=== PATIENT | female | born 1950 | race Native Hawaiian/Other Pacific Islander ===

== ENCOUNTER 2018-05-09 12:58 | Emergency (ER) | payer SELFPAY ==
[2018-05-09 13:10] VITALS: BP 155/86; PULSE 81; RESP 14; TEMP 36.8; O2SAT 98; BMI 25.6
--- NOTE | 2018-05-09 13:54 | ED_ITS ---
HPI - URI/Sore Throat General Chief Complaint: Upper Respiratory Symptoms Stated Complaint: Thinks she has the flu Time Seen by Provider: 05/09/18 13:54 Source: patient Mode of arrival: ambulatory Limitations: no limitations History of Present Illness HPI Narrative: otherwise healthy 68-year-old female who works as a [employer] here for evaluation of headache, body aches, and flu-like symptoms for the past 3 days. She has not tried anything for symptoms prior to arrival. Does not had a flu shot this year. Related Data Allergies Allergy/AdvReac Type Severity Reaction Status Date / Time No Known Drug Allergies Allergy Verified 05/09/18 13:14 Review of Systems Constitutional Reports fatigue, Denies fever(s) and Reports headache(s) ENT Ears, Nose, Mouth, and Throat: Denies vertigo and Reports headache(s) Cardiovascular Denies chest pain and Denies dyspnea Respiratory Denies dyspnea Gastrointestinal Gastrointestinal: Denies diarrhea Genitourinary Denies dysuria Musculoskeletal Reports myalgias and Denies arthralgias Integumentary/Breasts Reports rash Neurologic Denies vertigo and Reports headache(s) Endocrine Reports fatigue Hematologic/Lymphatic Denies easy bleeding and Denies easy bruising Allergic/Immunologic Denies urticaria PFSH Medical History Healthy adult (Acute) Social History Smoking Status: Unknown if ever smoked Social History Smoking Status: Unknown if ever smoked Exam Initial Vital Signs Initial Vital Signs: Vital Signs Temperature 98.2 F 05/09/18 13:10 Pulse Rate 81 05/09/18 13:10 Respiratory Rate 14 05/09/18 13:10 Blood Pressure 155/86 H 05/09/18 13:10 Pulse Oximetry 98 05/09/18 13:10 Const General: cooperative, healthy appearing, comfortable, well developed and No well groomed Orientation: alert, awake and oriented x3 HENMT Head: normal to inspection and normocephalic Resp Effort & Inspection: normal respiratory effort Auscultation: clear to auscultation bilaterally Cardio Rate: regular rate Rhythm: regular rhythm Skin Lesions: no lesions Rashes: no rashes Neuro General: alert, awake and oriented x3 Extrem General: normal to inspection and capillary refill normal Course Orders Ordered: ED Orders 05/09/18 13:15 Influenza A and B by PCR Rapid Stat Vital Signs - 8 hr 05/09/18 13:10 Temperature 98.2 F Pulse Rate 81 Respiratory Rate 14 Blood Pressure 155/86 H Pulse Oximetry 98 MDM - URI/Sore Throat Lab Data Attestation: I reviewed the patient's lab results. Lab Results 05/09/18 Range/Units 13:15 Influenza A & B (PCR) Positive, type a A (Negative) [facility] Narrative Medical decision making narrative: Patient is flu positive. She is nontoxic appearing. She is out of the window for treatment per CDC guidelines. We did discuss the use of Tylenol and Motrin. We did discuss the expected course of treatment for the flu. She was given return precautions. She expressed understanding and agreement with plan. Discharge Plan Departure Patient Disposition: Home Clinical Impression: Influenza Instructions: DI for Influenza -- Adult Activity Restrictions/Additional Instructions: Be sure your increasing your fluid intake. You can use Tylenol and/or Motrin for any body aches or fevers. Contact her primary care doctor for a follow-up. Stand Alone Forms: Work Release Note
[2018-05-09 14:19] VITALS: BP 117/85; PULSE 81; RESP 18; O2SAT 97
== END 2018-05-09 14:19 | disposition home or self-care (01) ==
PROVIDERS: Emergency Provider Emergency Medicine
DX: J11.1 Influenza due to unidentified influenza virus with other respiratory manifestations (principal)
CPT/HCPCS: 87400; 99282